=== PATIENT | male | born 1945 | race Caucasian/White ===

== ENCOUNTER → 2023-02-05 12:50 | Outpatient (BNVA) | payer MEDICARE, SELFPAY | PROVIDERS: PCP Nurse Practitioner Family; Visit Provider Hospitalist | DX: J44.9 Chronic obstructive pulmonary disease, unspecified (principal); J45.40 Moderate persistent asthma, uncomplicated; R91.8 Other nonspecific abnormal finding of lung field; J31.0 Chronic rhinitis; J32.9 Chronic sinusitis, unspecified; K21.9 Gastro-esophageal reflux disease without esophagitis; E04.1 Nontoxic single thyroid nodule | CPT/HCPCS: 99202 ==

== ENCOUNTER 2023-02-18 10:35 | Outpatient (REF) | payer MEDICARE, SELFPAY ==
--- NOTE | 2023-02-18 | PFT_ITS ---
Forced vital capacity is 84%, FEV1 82%. FEV1 over FVC ratio is 71. [id number] 73% and MVV 99%. Post bronchodilator therapy, there is no significant change. Total lung capacity 94% and residual volume is 102%. Diffusion capacity 85%. CONCLUSION: 1. Normal pulmonary function test. There is no evidence of obstructive or restrictive pulmonary disorder. 2. No response to bronchodilator therapy. MD FLORENCE Echevarria/MODL / [id number]
== END 2023-02-18 10:36 | disposition home or self-care (01) ==
LOC: HO.RESP 10:35
PROVIDERS: PCP Nurse Practitioner Family; Visit Provider Hospitalist
DX: J45.40 Moderate persistent asthma, uncomplicated (principal)
CPT/HCPCS: 94010; 94727; 94729

== ENCOUNTER 2023-04-30 12:58 | Outpatient (AMB) | payer MEDICARE, SELFPAY ==
--- NOTE | 2023-04-30 13:15 | MHC.OFFVIS ---
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 Apparently back in 2010 he was evaluated for worsening shortness of breath and he had a pulmonary function study along with a positive methacholine challenge demonstrating a diagnosis of asthma. The patient was started on inhalers. He had been placed on Flovent Diskus but he did not tolerate the powder and then ultimately on Symbicort. He has done okay and Symbicort for still having episodes of shortness of breath. He describes sometimes some significant she episodes where he has a hard time breathing. He feels like he is panting and then feels like it is hard for him to catch his breath. These episodes can be very traumatic for him. Typically his rescue inhaler is not helpful. He does not have a nebulizer. We also reviewed previous imaging studies. He had a CT scan of the chest back in 2015 demonstrating pulmonary nodules largest 1 measuring 9 mm in size in the left lower lobe. All the nodular densities appear to be stable when compared to previous CT scan from 2009. It appeared also that he had evidence of a irregular thyroid with some deviation of the trachea to the left side. More recently a CT scan of the neck also demonstrated thyroid nodularity. The patient will ultimately need follow-up for that. For respiratory status the patient has some expiratory wheezing. As far as triggers he is being treated for reflux disease. He follows a strict reflux diet. We will assess him for potential allergic reactions as well. The 04/30/2023 the patient is here for pulmonary follow-up visit. The patient continues to have intermittent dyspnea. He does stay active and does not have any significant breathing issues when he is active. He did try the Trelegy inhaler but was not very effective. He went back to Symbicort. He cannot tolerate the powder and did not think it was helpful. He also has a Combivent inhaler that he uses at times. He has used it maybe once or twice in the last 3 weeks. The patient did have pulmonary function studies back in January demonstrating mild obstruction consistent mild COPD. His allergy testing was all negative. The patient does have underlying pulmonary nodules have been followed for many years and have been stable. If the patient continues to be symptomatic we can always consider repeating the CT scan. In the meantime he should have a ultrasound of the thyroid in view of the thyroid nodularity. Will go ahead and request 1 at his local hospital. [facility] Medical History (Updated 02/05/23 @ 21:19 by Hector Martinez MD) Asthma Asthma-COPD overlap syndrome Chronic rhinosinusitis GERD (gastroesophageal reflux disease) Pulmonary nodules Thyroid nodule Social History (Updated 02/05/23 @ 13:10 by LULU Hays) Patient Tobacco Use Status: Former Tobacco user Tobacco use type: Cigarette Years Smoked: 6 Years Review of Systems Const Denies fever(s) Eyes Denies change in vision ENT Reports nasal congestion and Reports nasal discharge Card Denies chest pain, Reports dyspnea and Reports dyspnea on exertion Resp Reports cough, Reports dyspnea, Reports dyspnea on exertion and Reports wheezing GI Reports dyspepsia and Reports heartburn Musc Reports no additional complaints Skin/Breast Denies rash Neuro Reports no additional complaints Jacobo/Lymph Denies lymphadenopathy Aller/Immun Reports wheezing Physical Exam Vital Signs: Last Vital Signs Pulse 76 04/30/23 13:16 BP 142/78 H 04/30/23 13:16 Pulse Ox 98 04/30/23 13:16 Oxygen Delivery Method Room Air 04/30/23 13:16 BMI result Body Mass Index 27.8 Const General: comfortable HEENT Head: Yes normocephalic Neck Neck: Yes supple Chest Chest palpation & inspection: normal inspection of the chest Resp Effort & Inspection: normal respiratory effort Auscultation: wheezes and diminished lung sounds Cardio Rate: regular rate Rhythm: regular rhythm Heart sounds: S1 normal heart sound present and S2 normal heart sound present GI Palpation (GI): Soft to palpation Skin General skin exam: no rashes or lesions noted Extrem General: Yes no clubbing, cyanosis or edema Assessment & Plan Assessment & Plan (1) Asthma-COPD overlap syndrome: Code(s): J44.9 - Chronic obstructive pulmonary disease, unspecified (2) Asthma: Code(s): J45.909 - Unspecified asthma, uncomplicated Qualifiers: Asthma complication type: uncomplicated Asthma persistence: persistent Asthma severity: moderate Qualified Code(s): J45.40 - Moderate persistent asthma, uncomplicated (3) Pulmonary nodules: Code(s): R91.8 - Other nonspecific abnormal finding of lung field (4) Chronic rhinosinusitis: Code(s): J31.0 - Chronic rhinitis; J32.9 - Chronic sinusitis, unspecified (5) GERD (gastroesophageal reflux disease): Code(s): K21.9 - Gastro-esophageal reflux disease without esophagitis (6) Thyroid nodule: Code(s): E04.1 - Nontoxic single thyroid nodule Plan continue Symbicort Stopped Trelegy (not tolerate the powder) Continue Combivent Consider Spiriva JOSESITO as needed reflux diet continue PPI continue Singulair Thyroid US Consider repeating CT chest in the near future nebulizer provided during the last visit Duoneb BID as needed start on line pulmonary rehab- info provided F/U 6-8 months Orders: Orders US thyroid Today E04.1 - Nontoxic single thyroid nodule Coding Level of Care Code Est Pt Level 4 (05391) Diagnoses Asthma-COPD overlap syndrome J44.9 Asthma J45.40 Asthma complication type: uncomplicated Asthma persistence: persistent Asthma severity: moderate Pulmonary nodules R91.8 Chronic rhinosinusitis J31.0; J32.9 GERD (gastroesophageal reflux disease) K21.9 Thyroid nodule E04.1 Time Spent (min) 20
[2023-04-30 13:16] VITALS: BP 142/78; PULSE 76; O2SAT 98; BMI 27.8
== END 2023-04-30 13:40 | disposition home or self-care (01) ==
PROVIDERS: PCP Nurse Practitioner Family; Visit Provider Hospitalist
DX: J45.40 Moderate persistent asthma, uncomplicated (principal); R91.8 Other nonspecific abnormal finding of lung field; K21.9 Gastro-esophageal reflux disease without esophagitis; E04.1 Nontoxic single thyroid nodule
CPT/HCPCS: 99214

== ENCOUNTER → 2023-04-30 12:58 | Outpatient (BNVA) | payer MEDICARE, SELFPAY | PROVIDERS: PCP Nurse Practitioner Family; Visit Provider Hospitalist | DX: J44.9 Chronic obstructive pulmonary disease, unspecified (principal); J45.40 Moderate persistent asthma, uncomplicated; R91.8 Other nonspecific abnormal finding of lung field; J31.0 Chronic rhinitis; J32.9 Chronic sinusitis, unspecified; K21.9 Gastro-esophageal reflux disease without esophagitis; E04.1 Nontoxic single thyroid nodule | CPT/HCPCS: 99212 ==

== ENCOUNTER 2023-12-31 13:06 | Outpatient (AMB) | payer MEDICARE, SELFPAY ==
[2023-12-31 13:06] VITALS: BMI 26.4
--- NOTE | 2023-12-31 13:06 | MHC.OFFVIS ---
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 The patient was started on inhalers. He had been placed on Flovent Diskus but he did not tolerate the powder and then ultimately on Symbicort. He has done okay and Symbicort for still having episodes of shortness of breath. He describes sometimes some significant she episodes where he has a hard time breathing. He feels like he is panting and then feels like it is hard for him to catch his breath. These episodes can be very traumatic for him. Typically his rescue inhaler is not helpful. He does not have a nebulizer. We also reviewed previous imaging studies. He had a CT scan of the chest back in 2015 demonstrating pulmonary nodules largest 1 measuring 9 mm in size in the left lower lobe. All the nodular densities appear to be stable when compared to previous CT scan from 2009. It appeared also that he had evidence of a irregular thyroid with some deviation of the trachea to the left side. More recently a CT scan of the neck also demonstrated thyroid nodularity. The patient will ultimately need follow-up for that. For respiratory status the patient has some expiratory wheezing. As far as triggers he is being treated for reflux disease. He follows a strict reflux diet. We will assess him for potential allergic reactions as well. 04/30/2023 the patient is here for pulmonary follow-up visit. The patient continues to have intermittent dyspnea. He does stay active and does not have any significant breathing issues when he is active. He did try the Trelegy inhaler but was not very effective. He went back to Symbicort. He cannot tolerate the powder and did not think it was helpful. He also has a Combivent inhaler that he uses at times. He has used it maybe once or twice in the last 3 weeks. The patient did have pulmonary function studies back in January demonstrating mild obstruction consistent mild COPD. His allergy testing was all negative. The patient does have underlying pulmonary nodules have been followed for many years and have been stable. If the patient continues to be symptomatic we can always consider repeating the CT scan. In the meantime he should have a ultrasound of the thyroid in view of the thyroid nodularity. Will go ahead and request 1 at his local hospital. 12/31/2023 the patient has a telehealth visit today. The patient started becoming sick about a week ago. He is gotten worse. Unfortunately he is getting dizzy when he coughs and feels like he is going to pass out. Therefore he was not safe for him to come to the office. The patient has been having coughing spells. Also complains of chest tightness and wheezing. Moderate severity. He is taking his respiratory medications only partial resolution of symptoms. At this moment will go ahead and treat him for a COPD exacerbation and likely a lower respiratory infection. In the meantime the patient did follow-up with endocrinology. He did have a biopsy of the thyroid which was negative for any cancer per report. If however his symptoms worsen they can was call and we can request for chest x-ray to assess the acute illness, again, if he does not respond to the antibiotics and prednisone prescribed. [facility] Medical History (Updated 12/31/23 @ 13:20 by Hector Martinez MD) Thyroid nodule GERD (gastroesophageal reflux disease) Chronic rhinosinusitis Pulmonary nodules Asthma-COPD overlap syndrome Asthma Social History (Updated 02/05/23 @ 13:10 by LULU Hays) Patient Tobacco Use Status: Former Tobacco user Tobacco use type: Cigarette Years Smoked: 6 Years Review of Systems Const Denies fever(s) Eyes Denies change in vision ENT Reports dizziness, Reports nasal congestion and Reports nasal discharge Card Denies chest pain, Reports dyspnea and Reports dyspnea on exertion Resp Reports chest congestion, Reports cough, Reports dyspnea, Reports dyspnea on exertion and Reports wheezing GI Reports dyspepsia and Reports heartburn Musc Reports no additional complaints Skin/Breast Denies rash Neuro Reports no additional complaints and Reports dizziness Jacobo/Lymph Denies lymphadenopathy Aller/Immun Reports wheezing Physical Exam Vital Signs: BMI result Body Mass Index 26.4 Const General: comfortable Orientation/consciousness: patient oriented x3 Resp Effort & Inspection: normal respiratory effort and able to speak in complete sentences Neuro General: patient oriented x3 Assessment & Plan Assessment & Plan (1) Asthma-COPD overlap syndrome: Code(s): J44.9 - Chronic obstructive pulmonary disease, unspecified (2) Pulmonary nodules: Code(s): R91.8 - Other nonspecific abnormal finding of lung field (3) Chronic rhinosinusitis: Code(s): J31.0 - Chronic rhinitis; J32.9 - Chronic sinusitis, unspecified (4) GERD (gastroesophageal reflux disease): Code(s): K21.9 - Gastro-esophageal reflux disease without esophagitis Qualifiers: Esophagitis presence: without esophagitis Qualified Code(s): K21.9 - Gastro-esophageal reflux disease without esophagitis (5) Thyroid nodule: Code(s): E04.1 - Nontoxic single thyroid nodule (6) COPD exacerbation: Code(s): J44.1 - Chronic obstructive pulmonary disease with (acute) exacerbation Plan start Prednisone taper start Augmentin Start Dulera Insurance no longer covering Symbicort Stopped Trelegy / Breo (not tolerate the powder) Continue Combivent Consider Spiriva JOSESITO as needed reflux diet continue PPI continue Singulair CXR if no better Consider repeating CT chest in the near future nebulizer Duoneb BID as needed on line pulmonary rehab- info provided F/U 6-8 months Orders: Orders XR chest 2V Today J44.1 - Chronic obstructive pulmonary disease with (acute) exacerbation Medications: New mometasone-formoterol 200-5 mcg/actuation (Dulera) 2 puffs inhalation Q12H 30 days 13 grams 11RF amoxicillin-pot clavulanate 875-125 mg 1 tab PO BID 10 days 20 tabs 0RF prednisone PO daily; Take 2 tabs daily x 5 days, then 1 tablet daily x 5 days 10 days 15 tabs 0RF Telehealth Telehealth Location of provider rendering services: practice address Location of patient: address on file Patient Identification confirmed using: Name, : Yes Telehealth method: voice only Patient verbally consented to treatment: Yes Patient verbally consented to billing insurance company: Yes Patient informed of any privacy concerns related to visit: Yes Coding Level of Care Code Tele Est Pt Level 4 (81931) Diagnoses Asthma-COPD overlap syndrome J44.9 Pulmonary nodules R91.8 Chronic rhinosinusitis J31.0; J32.9 Gastroesophageal reflux disease without esophagitis K21.9 Esophagitis presence: without esophagitis Thyroid nodule E04.1 COPD exacerbation J44.1 Time Spent (min) 15
== END 2023-12-31 13:25 | disposition home or self-care (01) ==
LOC: HO.HPS 13:06
PROVIDERS: PCP Nurse Practitioner Family; Visit Provider Hospitalist
DX: J44.1 Chronic obstructive pulmonary disease with (acute) exacerbation (principal); R91.8 Other nonspecific abnormal finding of lung field; J31.0 Chronic rhinitis; J32.9 Chronic sinusitis, unspecified; K21.9 Gastro-esophageal reflux disease without esophagitis; E04.1 Nontoxic single thyroid nodule
CPT/HCPCS: 99442

== ENCOUNTER → 2023-12-31 13:06 | Outpatient (BNVA) | payer MEDICARE, SELFPAY | PROVIDERS: PCP Nurse Practitioner Family; Visit Provider Hospitalist | DX: J44.9 Chronic obstructive pulmonary disease, unspecified (principal); J45.909 Unspecified asthma, uncomplicated; E04.1 Nontoxic single thyroid nodule ==

== ENCOUNTER 2024-06-08 12:53 | Outpatient (AMB) | payer MEDICARE, SELFPAY ==
[2024-06-08 13:03] VITALS: BP 134/78; PULSE 78; O2SAT 95; BMI 27.1
--- NOTE | 2024-06-08 13:03 | MHC.OFFVIS ---
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 The patient was started on inhalers. He had been placed on Flovent Diskus but he did not tolerate the powder and then ultimately on Symbicort. He has done okay and Symbicort for still having episodes of shortness of breath. He describes sometimes some significant she episodes where he has a hard time breathing. He feels like he is panting and then feels like it is hard for him to catch his breath. These episodes can be very traumatic for him. Typically his rescue inhaler is not helpful. He does not have a nebulizer. We also reviewed previous imaging studies. He had a CT scan of the chest back in 2015 demonstrating pulmonary nodules largest 1 measuring 9 mm in size in the left lower lobe. All the nodular densities appear to be stable when compared to previous CT scan from 2009. It appeared also that he had evidence of a irregular thyroid with some deviation of the trachea to the left side. More recently a CT scan of the neck also demonstrated thyroid nodularity. The patient will ultimately need follow-up for that. For respiratory status the patient has some expiratory wheezing. As far as triggers he is being treated for reflux disease. He follows a strict reflux diet. We will assess him for potential allergic reactions as well. 04/30/2023 the patient is here for pulmonary follow-up visit. The patient continues to have intermittent dyspnea. He does stay active and does not have any significant breathing issues when he is active. He did try the Trelegy inhaler but was not very effective. He went back to Symbicort. He cannot tolerate the powder and did not think it was helpful. He also has a Combivent inhaler that he uses at times. He has used it maybe once or twice in the last 3 weeks. The patient did have pulmonary function studies back in January demonstrating mild obstruction consistent mild COPD. His allergy testing was all negative. The patient does have underlying pulmonary nodules have been followed for many years and have been stable. If the patient continues to be symptomatic we can always consider repeating the CT scan. In the meantime he should have a ultrasound of the thyroid in view of the thyroid nodularity. Will go ahead and request 1 at his local hospital. 12/31/2023 the patient has a telehealth visit today. The patient started becoming sick about a week ago. He is gotten worse. Unfortunately he is getting dizzy when he coughs and feels like he is going to pass out. Therefore he was not safe for him to come to the office. The patient has been having coughing spells. Also complains of chest tightness and wheezing. Moderate severity. He is taking his respiratory medications only partial resolution of symptoms. At this moment will go ahead and treat him for a COPD exacerbation and likely a lower respiratory infection. In the meantime the patient did follow-up with endocrinology. He did have a biopsy of the thyroid which was negative for any cancer per report. If however his symptoms worsen they can was call and we can request for chest x-ray to assess the acute illness, again, if he does not respond to the antibiotics and prednisone prescribed. 06/08/2024 the patient is here for a pulmonary follow-up visit. overall, the patient is doing well. He has been doing well on the Dulera. He has a Combivent inhaler although he has not needed it frequently. although does not have the same expiration time. Will switch him to a regular short-acting beta agonist. We did review his last chest x-ray. He has been more than a year. Will plan to repeat the x-ray at this time. Otherwise patient is doing well. Follow-up in a year's time. If he develops any worsening respiratory symptoms prior to that he will call for an earlier assessment. [facility] Medical History (Updated 12/31/23 @ 13:20 by Hector Martinez MD) Thyroid nodule GERD (gastroesophageal reflux disease) Chronic rhinosinusitis Pulmonary nodules Asthma-COPD overlap syndrome Asthma Social History (Updated 02/05/23 @ 13:10 by LULU Hays) Patient Tobacco Use Status: Former Tobacco user Tobacco use type: Cigarette Years Smoked: 6 Years Review of Systems Const Denies fever(s) Eyes Denies change in vision ENT Reports nasal congestion and Reports nasal discharge Card Denies chest pain, Reports dyspnea and Reports dyspnea on exertion Resp Reports chest congestion, Reports cough, Reports dyspnea, Reports dyspnea on exertion and Reports wheezing GI Reports dyspepsia and Reports heartburn Musc Reports no additional complaints Skin/Breast Denies rash Neuro Reports no additional complaints Jacobo/Lymph Denies lymphadenopathy Aller/Immun Reports wheezing Physical Exam Vital Signs: Last Vital Signs Pulse 78 06/08/24 13:03 BP 134/78 06/08/24 13:03 Pulse Ox 95 06/08/24 13:03 Oxygen Delivery Method Room Air 06/08/24 13:03 BMI result Body Mass Index 27.1 Const General: comfortable HEENT Head: Yes normocephalic Neck Neck: Yes supple Chest Chest palpation & inspection: normal inspection of the chest Resp Effort & Inspection: normal respiratory effort and prolonged expiratory phase Auscultation: no wheezes and diminished lung sounds Cardio Rate: regular rate Rhythm: regular rhythm Heart sounds: S1 normal heart sound present and S2 normal heart sound present GI Palpation (GI): Soft to palpation Skin General skin exam: no rashes or lesions noted Extrem General: Yes no clubbing, cyanosis or edema Assessment & Plan Assessment & Plan (1) Asthma-COPD overlap syndrome: Code(s): J44.9 - Chronic obstructive pulmonary disease, unspecified Category: Medical (2) Pulmonary nodules: Code(s): R91.8 - Other nonspecific abnormal finding of lung field Category: Medical (3) Chronic rhinosinusitis: Code(s): J31.0 - Chronic rhinitis; J32.9 - Chronic sinusitis, unspecified Category: Medical (4) GERD (gastroesophageal reflux disease): Code(s): K21.9 - Gastro-esophageal reflux disease without esophagitis Category: Medical Qualifiers: Esophagitis presence: without esophagitis Qualified Code(s): K21.9 - Gastro-esophageal reflux disease without esophagitis (5) Thyroid nodule: Code(s): E04.1 - Nontoxic single thyroid nodule Category: Medical (6) COPD exacerbation: Code(s): J44.1 - Chronic obstructive pulmonary disease with (acute) exacerbation Category: Medical Plan continue Dulera stop Combivent when completed start Ventolin HFA as needed Consider Spiriva JOSESITO as needed reflux diet continue PPI stopped Singulair CXR nebulizer Duoneb BID as needed on line pulmonary rehab- info provided F/U 8-12 months Orders: Orders XR chest 2V Today J44.9 - Chronic obstructive pulmonary disease, unspecified Medications: New albuterol sulfate 90 mcg/actuation (Ventolin HFA) 2 puffs inhalation QID PRN 18 grams 11RF shortness of breath or wheezing 30 days Coding Level of Care Code Est Pt Level 4 (66973) Diagnoses Asthma-COPD overlap syndrome J44.9 Pulmonary nodules R91.8 Chronic rhinosinusitis J31.0; J32.9 Gastroesophageal reflux disease without esophagitis K21.9 Esophagitis presence: without esophagitis Thyroid nodule E04.1 COPD exacerbation J44.1 Time Spent (min) 16
== END 2024-06-08 13:46 | disposition home or self-care (01) ==
PROVIDERS: PCP Nurse Practitioner Family; Visit Provider Hospitalist
DX: J44.9 Chronic obstructive pulmonary disease, unspecified (principal); R91.8 Other nonspecific abnormal finding of lung field; J31.0 Chronic rhinitis; J32.9 Chronic sinusitis, unspecified; K21.9 Gastro-esophageal reflux disease without esophagitis; E04.1 Nontoxic single thyroid nodule; J44.1 Chronic obstructive pulmonary disease with (acute) exacerbation
CPT/HCPCS: 99214

== ENCOUNTER → 2024-06-08 12:53 | Outpatient (BNVA) | payer MEDICARE, SELFPAY | PROVIDERS: PCP Nurse Practitioner Family; Visit Provider Hospitalist | DX: J44.9 Chronic obstructive pulmonary disease, unspecified (principal); E04.1 Nontoxic single thyroid nodule; J44.1 Chronic obstructive pulmonary disease with (acute) exacerbation; R91.8 Other nonspecific abnormal finding of lung field; J31.0 Chronic rhinitis; J32.9 Chronic sinusitis, unspecified; K21.9 Gastro-esophageal reflux disease without esophagitis | CPT/HCPCS: 99212 ==

== ENCOUNTER 2025-06-04 12:57 | Outpatient (AMB) | payer MEDICARE, SELFPAY ==
--- NOTE | 2025-06-04 13:04 | MHC.OFFVIS ---
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 Apparently back in 2010 he was evaluated for worsening shortness of breath and he had a pulmonary function study along with a positive methacholine challenge demonstrating a diagnosis of asthma. The patient was started on inhalers. He had been placed on Flovent Diskus but he did not tolerate the powder and then ultimately on Symbicort. He has done okay and Symbicort for still having episodes of shortness of breath. He describes sometimes some significant she episodes where he has a hard time breathing. He feels like he is panting and then feels like it is hard for him to catch his breath. These episodes can be very traumatic for him. Typically his rescue inhaler is not helpful. He does not have a nebulizer. We also reviewed previous imaging studies. He had a CT scan of the chest back in 2015 demonstrating pulmonary nodules largest 1 measuring 9 mm in size in the left lower lobe. All the nodular densities appear to be stable when compared to previous CT scan from 2009. It appeared also that he had evidence of a irregular thyroid with some deviation of the trachea to the left side. More recently a CT scan of the neck also demonstrated thyroid nodularity. The patient will ultimately need follow-up for that. For respiratory status the patient has some expiratory wheezing. As far as triggers he is being treated for reflux disease. He follows a strict reflux diet. We will assess him for potential allergic reactions as well. 04/30/2023 the patient is here for pulmonary follow-up visit. The patient continues to have intermittent dyspnea. He does stay active and does not have any significant breathing issues when he is active. He did try the Trelegy inhaler but was not very effective. He went back to Symbicort. He cannot tolerate the powder and did not think it was helpful. He also has a Combivent inhaler that he uses at times. He has used it maybe once or twice in the last 3 weeks. The patient did have pulmonary function studies back in January demonstrating mild obstruction consistent mild COPD. His allergy testing was all negative. The patient does have underlying pulmonary nodules have been followed for many years and have been stable. If the patient continues to be symptomatic we can always consider repeating the CT scan. In the meantime he should have a ultrasound of the thyroid in view of the thyroid nodularity. Will go ahead and request 1 at his local hospital. 12/31/2023 the patient has a telehealth visit today. The patient started becoming sick about a week ago. He is gotten worse. Unfortunately he is getting dizzy when he coughs and feels like he is going to pass out. Therefore he was not safe for him to come to the office. The patient has been having coughing spells. Also complains of chest tightness and wheezing. Moderate severity. He is taking his respiratory medications only partial resolution of symptoms. At this moment will go ahead and treat him for a COPD exacerbation and likely a lower respiratory infection. In the meantime the patient did follow-up with endocrinology. He did have a biopsy of the thyroid which was negative for any cancer per report. If however his symptoms worsen they can was call and we can request for chest x-ray to assess the acute illness, again, if he does not respond to the antibiotics and prednisone prescribed. 06/08/2024 the patient is here for a pulmonary follow-up visit. overall, the patient is doing well. He has been doing well on the Dulera. He has a Combivent inhaler although he has not needed it frequently. although does not have the same expiration time. Will switch him to a regular short-acting beta agonist. We did review his last chest x-ray. He has been more than a year. Will plan to repeat the x-ray at this time. Otherwise patient is doing well. Follow-up in a year's time. If he develops any worsening respiratory symptoms prior to that he will call for an earlier assessment. 06/04/2025 the patient is here for pulmonary follow-up visit. Overall he is doing excellent. He has been very mindful about his diet in addition to his exercise activity. He actually still has a good amount of weight and he feels a lot healthier in better. He continues uses Dulera daily. Typically uses it at nighttime. Although also needs it during the daytime. He has not had to use his rescue inhaler but he does need 1 available. Will make sure to send went to the pharmacy. Otherwise the patient is doing good we did look at his last chest x-ray which was without any acute disease. Will follow-up in a year's time if he has any issues prior to this he will call for further recommendations. [facility] Medical History (Updated 06/04/25 @ 13:22 by Hector Martinez MD) Systolic murmur Thyroid nodule GERD (gastroesophageal reflux disease) Chronic rhinosinusitis Pulmonary nodules Asthma-COPD overlap syndrome Asthma Social History Patient Tobacco Use Status: Former Tobacco user Tobacco use type: Cigarette Years Smoked: 6 Years Review of Systems Const Denies fever(s) Eyes Denies change in vision ENT Reports nasal congestion and Reports nasal discharge Card Denies chest pain, Reports dyspnea and Reports dyspnea on exertion Resp Reports chest congestion, Reports cough, Reports dyspnea, Reports dyspnea on exertion and Reports wheezing GI Reports dyspepsia and Reports heartburn Musc Reports no additional complaints Skin/Breast Denies rash Neuro Reports no additional complaints Jacobo/Lymph Denies lymphadenopathy Aller/Immun Reports wheezing Physical Exam Vital Signs: Last Vital Signs Pulse 80 06/04/25 13:05 BP 138/58 L 06/04/25 13:05 Pulse Ox 96 06/04/25 13:05 Oxygen Delivery Method Room Air 06/04/25 13:05 BMI result Body Mass Index 26.6 Const General: comfortable HEENT Head: Yes normocephalic Neck Neck: Yes supple Chest Chest palpation & inspection: normal inspection of the chest Resp Effort & Inspection: normal respiratory effort Auscultation: no wheezes and diminished lung sounds Cardio Rate: regular rate Rhythm: regular rhythm Heart sounds: S1 normal heart sound present and S2 normal heart sound present GI Palpation (GI): Soft to palpation Skin General skin exam: no rashes or lesions noted Extrem General: Yes no clubbing, cyanosis or edema Assessment & Plan Assessment & Plan (1) Asthma-COPD overlap syndrome: Code(s): J44.9 - Chronic obstructive pulmonary disease, unspecified Category: Medical (2) Pulmonary nodules: Code(s): R91.8 - Other nonspecific abnormal finding of lung field Category: Medical (3) Chronic rhinosinusitis: Code(s): J31.0 - Chronic rhinitis; J32.9 - Chronic sinusitis, unspecified Category: Medical (4) GERD (gastroesophageal reflux disease): Code(s): K21.9 - Gastro-esophageal reflux disease without esophagitis Category: Medical Qualifiers: Esophagitis presence: without esophagitis Qualified Code(s): K21.9 - Gastro-esophageal reflux disease without esophagitis (5) Thyroid nodule: Code(s): E04.1 - Nontoxic single thyroid nodule Category: Medical (6) Systolic murmur: Code(s): R01.1 - Cardiac murmur, unspecified Category: Medical Plan continue Dulera Ventolin HFA as needed JOSESITO as needed reflux diet continue PPI nebulizer Duoneb BID as needed on line pulmonary rehab- info provided F/U 8-12 months Medications: Refilled albuterol sulfate 90 mcg/actuation (Ventolin HFA) 2 puffs inhalation QID PRN 18 grams 11RF shortness of breath or wheezing 30 days mometasone-formoterol 200-5 mcg/actuation (Dulera) 2 puffs inhalation Q12H 3 ea 3RF 90 days Coding Level of Care Code Est Pt Level 4 (44732) Diagnoses Asthma-COPD overlap syndrome J44.9 Pulmonary nodules R91.8 Chronic rhinosinusitis J31.0; J32.9 Gastroesophageal reflux disease without esophagitis K21.9 Esophagitis presence: without esophagitis Thyroid nodule E04.1 Systolic murmur R01.1 Time Spent (min) 16
[2025-06-04 13:05] VITALS: BP 138/58; PULSE 80; O2SAT 96; BMI 26.6
== END 2025-06-04 13:26 | disposition home or self-care (01) ==
LOC: HO.HPS 12:57
PROVIDERS: PCP Nurse Practitioner Family; Visit Provider Hospitalist
DX: J44.9 Chronic obstructive pulmonary disease, unspecified (principal); R91.8 Other nonspecific abnormal finding of lung field; J31.0 Chronic rhinitis; J32.9 Chronic sinusitis, unspecified; K21.9 Gastro-esophageal reflux disease without esophagitis; E04.1 Nontoxic single thyroid nodule; R01.1 Cardiac murmur, unspecified
CPT/HCPCS: 99214

== ENCOUNTER → 2025-06-04 12:57 | Outpatient (BNVA) | payer MEDICARE, SELFPAY | PROVIDERS: PCP Nurse Practitioner Family; Visit Provider Hospitalist | DX: J44.9 Chronic obstructive pulmonary disease, unspecified (principal); R91.8 Other nonspecific abnormal finding of lung field; J31.0 Chronic rhinitis; J32.9 Chronic sinusitis, unspecified; K21.9 Gastro-esophageal reflux disease without esophagitis; Z87.891 Personal history of nicotine dependence; E04.1 Nontoxic single thyroid nodule; R01.1 Cardiac murmur, unspecified | CPT/HCPCS: 99212 ==